=== PATIENT | male | born 1975 | race African-American/Black ===

== ENCOUNTER 2020-09-21 02:25 | Emergency (ER) | payer SELFPAY ==
[2020-09-21 02:57] VITALS: BP 133/87; PULSE 68; TEMP 98; BMI 26.4
[2020-09-21] MEDS ORDERED: ONDANSETRON *ODT* 4 MG TABLET SL ONE (03:22)
[2020-09-21] MEDS ORDERED: FAMOTIDINE 20 MG/50 ML IVPB 20 MG/50 ML MG IVPB ONE ×2 (03:31→03:44)
[2020-09-21] MEDS ORDERED: MAG HYDROX/AL HYDROX/SIMETH 30 ML UNIT-DOSE CUP PO ONE (03:32)
[2020-09-21] MEDS ORDERED: MAG HYDROX/AL HYDROX/SIMETH 30 ML UNIT-DOSE CUP ONE (03:44)
[2020-09-21] MEDS ORDERED: ONDANSETRON *ODT* 4 MG TABLET ONE (03:44)
[2020-09-21 04:10] LABS: BASO % 0.6 % (0-2.0); EOS % 3.4 % (0-4.5); HEMATOCRIT 40.1 % (35.4-49); HEMOGLOBIN 13.3 GM/dL (11.7-16.9); LYMPH % 35.4 % (8-40); MCH 26.9 pg (25.7-33.7); MCHC 33.2 g/dl (32.0-35.9); MEAN CELL VOLUME 81.1 fl (80-96); MEAN PLT VOLUME 9.1 fl (7.5-11.1); MONO % 12.6 % (3.8-10.2); PLATELET COUNT 173 10^3/uL (134-434); RBC 4.95 M/mm3 (4.00-5.60); RDW 15.1 % (11.9-15.9); WHITE BLOOD COUNT 5.4 K/mm3 (4.0-10.0)
[2020-09-21 04:27] LABS: CHLORIDE 107 mmol/L (98-107); SODIUM 138 mmol/L (136-145)
[2020-09-21 04:29] LABS: CALCIUM 8.7 mg/dL (8.5-10.1)
[2020-09-21 04:30] LABS: ALBUMIN 3.8 g/dl (3.4-5.0); ANION GAP 8 MMOL/L (8-16); CO2 24 mmol/L (21-32); GLUCOSE,RANDOM 92 mg/dL (74-106); LIPASE 126 U/L (73-393)
[2020-09-21 04:32] LABS: SGPT/ALT 18 U/L (13-61)
[2020-09-21 04:33] LABS: SGOT/AST 20 U/L (15-37)
[2020-09-21 04:34] LABS: BILIRUBIN,TOTAL 0.4 mg/dL (0.2-1); TOT PROT 7.6 g/dl (6.4-8.2)
[2020-09-21 04:35] LABS: ALK PHOS 57 U/L (45-117)
[2020-09-21 05:27] LABS: CREATININE 0.9 mg/dL (0.55-1.3)
== END 2020-09-21 05:10 | disposition home or self-care (01) ==
LOC: JER 02:25
PROC: 3E033GC Introduction of Other Therapeutic Substance into Peripheral Vein, Percutaneous Approach (ICD-10-PCS; principal; 2020-09-21)
DX: R11.2 Nausea with vomiting, unspecified (principal)
CPT/HCPCS: 36415; 80053; 83690; 84484; 85025; 93005; 93010; 99284-25; Q0162

== ENCOUNTER 2022-01-20 07:35 | Day surgery (SDC) | payer BC ==
[2022-01-20 08:18] VITALS: BMI 27.6
[2022-01-20] MEDS ORDERED: BUPIVACAINE HCL/EPINEPHRINE/PF 30 ML VIAL IJ ONE (10:24)
[2022-01-20] MEDS ORDERED: MIDAZOLAM HCL 2 MG/2 ML SINGLE DOSE VIAL ONE (10:32)
[2022-01-20] MEDS ORDERED: ROPIVACAINE HCL 0.5% 30ML VIAL ONE (10:33)
[2022-01-20] MEDS ORDERED: PROPOFOL 60 ML ONE (11:37)
[2022-01-20] MEDS ORDERED: DEXAMETHASONE SOD PHOSPHATE 4 MG/1 ML VIAL ONE (11:37)
[2022-01-20] MEDS ORDERED: ONDANSETRON 4 MG/2 ML VIAL ONE (11:37)
[2022-01-20] MEDS ORDERED: ceFAZolin SODIUM 1 GM VIAL ONE (11:37)
[2022-01-20] MEDS ORDERED: METOPROLOL TARTRATE 5 MG/5 ML VIAL ONE (12:26)
[2022-01-20] MEDS ORDERED: PROPOFOL 20 ML ONE (13:01)
[2022-01-20] MEDS ORDERED: FENTANYL CITRATE/PF 50 MCG/ML VIAL ONE (14:06)
[2022-01-20] MEDS ORDERED: ONDANSETRON 4 MG/2 ML VIAL IVPUSH PRN (14:09)
[2022-01-20] MEDS ORDERED: oxyCODONE HCL 5 MG TABLET PO PRN ×2 (14:09)
[2022-01-20] MEDS ORDERED: LACTATED RINGERS SOLUTION 1,000 ML IV SCH (14:15)
[2022-01-20 15:05] VITALS: RESP 16; TEMP 97.8
[2022-01-20 15:52] VITALS: BP 117/67; PULSE 89
== END 2022-01-20 16:20 | disposition home or self-care (01) ==
LOC: FASU 07:35
PROVIDERS: ATTEND Orthopaedic Surgery
PROC: 0LS34ZZ Reposition Right Upper Arm Tendon, Percutaneous Endoscopic Approach (ICD-10-PCS; 2022-01-20)
PROC: 0RBJ4ZZ Excision of Right Shoulder Joint, Percutaneous Endoscopic Approach (ICD-10-PCS; principal; 2022-01-20 11:52)
DX: S46.011D Strain of muscle(s) and tendon(s) of the rotator cuff of right shoulder, subsequent encounter (principal); M75.21 Bicipital tendinitis, right shoulder; M75.51 Bursitis of right shoulder; M65.821 Other synovitis and tenosynovitis, right upper arm; S43.431A Superior glenoid labrum lesion of right shoulder, initial encounter; M75.01 Adhesive capsulitis of right shoulder; X58.XXXD Exposure to other specified factors, subsequent encounter; X58.XXXA Exposure to other specified factors, initial encounter; Y93.9 Activity, unspecified; Y92.9 Unspecified place or not applicable
CPT/HCPCS: 94760; C1713

== ENCOUNTER 2024-04-10 16:25 | Emergency (ER) | payer BC ==
[2024-04-10 16:32] VITALS: BP 137/81; PULSE 100; RESP 19; TEMP 98.4; BMI 27.9
[2024-04-10] MEDS ORDERED: IBUPROFEN 400 MG TABLET (FP) PO ONE (17:26)
[2024-04-10] MEDS ORDERED: ACETAMINOPHEN 500 MG TABLET (FP) ONE (17:26)
[2024-04-10] MEDS ORDERED: ONDANSETRON *ODT* 4 MG TABLET ONE (17:27)
[2024-04-10] MEDS: ONDANSETRON *ODT* 4 MG TABLET SL ONE (17:28)
[2024-04-10] MEDS: IBUPROFEN 400 MG TABLET (FP) PO ONE (17:50)
[2024-04-10] MEDS: ACETAMINOPHEN 500 MG TABLET (FP) PO ONE (17:51)
== END 2024-04-10 18:25 | disposition home or self-care (01) ==
LOC: JERFT 16:25
DX: J10.1 Influenza due to other identified influenza virus with other respiratory manifestations (principal); R11.2 Nausea with vomiting, unspecified; R50.9 Fever, unspecified; M79.10 Myalgia, unspecified site; Z20.822 Contact with and (suspected) exposure to COVID-19
CPT/HCPCS: 0241U-QW; 99283-25; Q0162